=== PATIENT | male | born 1985 | race Caucasian/White ===

== ENCOUNTER 2020-12-11 16:02 | Emergency (ER) | payer MEDICAID ==
[~2020-12-11] VITALS: Ht 172.7 cm; Wt 80.0 kg
[2020-12-11 16:04] VITALS: BP 205/136
== END 2020-12-11 16:25 | disposition home or self-care (01) ==
LOC: ER 16:03
DX: I10 Essential (primary) hypertension (principal); F19.10 Other psychoactive substance abuse, uncomplicated; R06.02 Shortness of breath; F41.9 Anxiety disorder, unspecified; F15.90 Other stimulant use, unspecified, uncomplicated; Z72.89 Other problems related to lifestyle
CPT/HCPCS: 99281

== ENCOUNTER 2022-04-20 21:05 | Emergency (ER) | payer SELFPAY ==
[~2022-04-20] VITALS: Ht 167.6 cm; Wt 86.3 kg
[2022-04-20] MEDS ORDERED: lisinopril 10 MG tablet PO ONE (21:40)
[2022-04-20] MEDS ORDERED: cloNIDine 0.1 mg tablet PO ONE (23:15)
[2022-04-21 00:01] VITALS: BP 166/110
== END 2022-04-21 00:06 ==
LOC: ER 21:06
DX: I10 Essential (primary) hypertension (principal); Z02.89 Encounter for other administrative examinations; F41.9 Anxiety disorder, unspecified; F15.10 Other stimulant abuse, uncomplicated
CPT/HCPCS: 99283